=== PATIENT | female | born 1990 | race Caucasian/White ===

== ENCOUNTER 2022-01-06 23:33 | Inpatient (IN) | payer OTHER, SELFPAY ==
[2022-01-06] MEDS ORDERED: Lidocaine 1% (PF) 30 ML VIAL ONE (23:45)
[2022-01-06] MEDS ORDERED: Oxytocin 10 UNITS/ML VIAL ONE (23:45)
[2022-01-06] MEDS ORDERED: NS w/ Oxytocin 30 units 500 ML ONE (23:59)
[2022-01-07] MEDS ORDERED: Carboprost 250 MCG/ML AMP ONE (00:22)
[2022-01-07] MEDS ORDERED: Misoprostol 200 MCG TAB ONE (00:22)
[2022-01-07] MEDS ORDERED: Lidocaine 1% (PF) 30 ML VIAL ONE (00:27)
[2022-01-07] MEDS ORDERED: Promethazine HCl 25 MG/ML VIAL IM PRN (01:12)
[2022-01-07] MEDS ORDERED: hydrALAZINE 20 MG/ML VIAL SLOW IVP PRN ×2 (01:12→01:13)
[2022-01-07] MEDS ORDERED: Ondansetron PF 4 MG/2 ML Vial IVP PRN (01:12)
[2022-01-07] MEDS ORDERED: Lidocaine 1% (PF) 30 ML VIAL SC PRN (01:12)
[2022-01-07] MEDS ORDERED: Bisacodyl 10 MG SUPP PR PRN (01:13)
[2022-01-07] MEDS ORDERED: Milk Of Magnesia 30 ML UDCUP PO PRN (01:13)
[2022-01-07] MEDS ORDERED: Boostrix 0.5 ML (Tdap) VIAL (>/=7 yrs of age) IM ONE (01:13)
[2022-01-07] MEDS ORDERED: Zolpidem Tartrate 5 MG TAB PO PRN (01:13)
[2022-01-07 01:56] LABS: Hemoglobin 14.6 g/dL (12.0-15.5); Mean Corpuscular HGB CONC 34.9 g/dL (32.0-36.0); Mean Corpuscular Hemoglobin 30.7 pg (27.0-33.0); Mean Corpuscular Volume 87.8 fl (81.6-98.3); Mean Platelet Volume 11.3 fl (7.4-10.4); Platelet Count 249 10x3/uL (150-450); RBC Distribution Width 11.6 % (11.5-14.5); Red Blood Cell (RBC) Count 4.76 10x6/uL (3.90-5.03); White Blood Cell (WBC) Count 19.7 10x3/uL (3.5-10.5)
[2022-01-07] MEDS ORDERED: NS w/ Oxytocin 30 units 500 ML IV SCH (02:00)
[2022-01-07 02:39] LABS: HBSAg Index 0.23 S/CO (0-0.99); Hep B Surf Ag NonReactive S/CO (NonReactive)
[2022-01-07 02:40] LABS: Syphilis Antibody Nonreactive (Nonreactive); Syphilis Antibody Index 0.02 S/CO (<1.00 Non-Reactive)
[2022-01-07 02:57] VITALS: BMI 24.7
[2022-01-07 03:16] LABS: SARS-CoV-2 NAA Rapid Test Not Detected (NotDetected)
[2022-01-07] MEDS: Ibuprofen 800 MG TAB PO SCH ×3 (05:45→23:30)
[2022-01-07 06:31] LABS: MDiff Complete? YES; Platelet Morphology Comment Appears Adequate
[2022-01-07 06:33] LABS: Band 3 % (5-11); Lymphocytes 5 % (21-51); Monocytes 6 % (0-10); Neutrophil 85 % (42-75); Reactive Lymphocytes 1 % (0-10)
[2022-01-07 06:43] LABS: Hemoglobin 12.8 g/dL (12.0-15.5); Red Blood Cell (RBC) Count 4.15 10x6/uL (3.90-5.03); White Blood Cell (WBC) Count 24.4 10x3/uL (3.5-10.5)
[2022-01-07 06:44] LABS: Mean Corpuscular HGB CONC 34.9 g/dL (32.0-36.0); Mean Corpuscular Hemoglobin 30.8 pg (27.0-33.0); Mean Corpuscular Volume 88.4 fl (81.6-98.3); Mean Platelet Volume 10.8 fl (7.4-10.4); Platelet Count 209 10x3/uL (150-450); RBC Distribution Width 11.6 % (11.5-14.5)
[2022-01-07] MEDS: Ferrous Sulfate 325 MG TAB PO SCH ×2 (07:44→15:36)
[2022-01-07] MEDS: Docusate 100 MG CAP PO SCH ×2 (08:41→23:30)
[2022-01-07] MEDS: Prenatal Vitamin 1 TAB PO SCH (08:41)
[2022-01-07] MEDS ORDERED: Benzocaine-Menthol 82.5 ML CAN TOP PRN (13:28)
[2022-01-08] MEDS: Ibuprofen 800 MG TAB PO SCH ×2 (06:07→13:42)
[2022-01-08 08:22] VITALS: BP 118/74; TEMP 97.8
[2022-01-08] MEDS: Ferrous Sulfate 325 MG TAB PO SCH (08:27)
[2022-01-08] MEDS: Prenatal Vitamin 1 TAB PO SCH (09:00)
[2022-01-08] MEDS: Docusate 100 MG CAP PO SCH (09:01)
== END 2022-01-08 15:15 | disposition home or self-care (01) | DRG 807 ==
LOC: CSHLD/OP 23:33 → CSHLD 23:58 → CSHPP 01-07 03:10
PROVIDERS: ADMIT Obstetrics & Gynecology; ATTEND Obstetrics & Gynecology
PROC: 10E0XZZ Delivery of Products of Conception, External Approach (ICD-10-PCS; principal; 2022-01-07)
PROC: 0KQM0ZZ Repair Perineum Muscle, Open Approach (ICD-10-PCS; 2022-01-07)
DX: O70.1 Second degree perineal laceration during delivery (principal); Z37.0 Single live birth; Z20.822 Contact with and (suspected) exposure to COVID-19; Z3A.39 39 weeks gestation of pregnancy; Z86.16 Personal history of COVID-19; Z79.899 Other long term (current) drug therapy
CPT/HCPCS: 36415; 85027; 86780; 86850; 86900; 86901; 87340; 99285; J2001; J2590; U0002